=== PATIENT | female | born 1985 | race Caucasian/White ===

== ENCOUNTER 2024-12-15 16:13 | Emergency (ER) | payer BC ==
[~2024-12-15] VITALS: Ht 157.5 cm; Wt 86.4 kg
[2024-12-15 16:37] VITALS: TEMP 98.3
[2024-12-15 17:08] LABS: MEAN PLATELET VOLUME 7.5 FL (7.4-10.4); RED CELL DISTRIBUTION WIDTH 16.0 % (11.5-14.5)
[2024-12-15 17:19] LABS: LEUKOCYTE ESTERASE ,URINE NEGATIVE (Neg); NITRITES, URINE NEGATIVE (Neg); OCCULT BLOOD,URINE NEGATIVE (Neg)
[2024-12-15 17:20] LABS: URINE HCG NEGATIVE (NEG)
[2024-12-15 17:26] LABS: CREATININE 0.86 MG/DL (0.40-0.90); TOTAL CARBON DIOXIDE 28.8 MMOL/L (24-32); eCRCL 69 ML/MIN; eGFR 73 ML/MIN
[2024-12-15 17:32] LABS: UA COLLECTION TYPE CLN CATCH MIDSTREAM
[2024-12-15] MEDS ORDERED: HYDR-3965 PO (20:22)
[2024-12-15] MEDS ORDERED: CYCL-1 PO (20:22)
--- NOTE | 2024-12-15 20:23 | Physician Documentation ---
History of Present Illness ~ Chief Complaint: Flank Pain Stated Complaint: UTI Time Seen by MD: 20:12 HPI Patient presents to the emergency room for evaluation of back pain onset three days ago. No falls or injuries reported. She did call telemedicine who prescribed her some Macrobid. No fevers. She denies any dysuria. She is concerned that it may be her kidneys. Taking a leave and Tylenol with limited benefit. Review of Systems ROS All review of systems negative except as per HPI Physical Exam Physical Exam Vital Signs: Temperature: 98.3, Source: Oral, Heart Rate: 123, Respiratory Rate: 16, BP: 180/71, Pulse Oximetry: 97, Weight: 86.360 Oxygen Flow Rate: 0 Physical Exam General: Patient is awake, alert, oriented x4 in no acute distress and well appearing.~ Head: Normocephalic and atraumatic. Eyes: Conjunctival normal. EOMI. PERRL. ENT: Mucous membranes moist. Neck: Supple, trachea is midline. Chest: Clear to auscultation bilaterally without rales, rhonchi, or wheezes. There is no accessory muscle use or retractions. Cardiac: RRR without murmurs, gallops, or rubs. Abd: Soft, nondistended, nontender, with normoactive bowel sounds. No guarding, rebound, or rigidity. Back: Tenderness to palpation to midline and upper lumbar area Progress Results/Orders Results/Orders Vital Signs 12/15/24 12/15/24 16:37 19:42 Temp 98.3 Pulse 123 Resp 16 B/P (MAP) 180/71 Pulse Ox 97 O2 Flow Rate 0 Laboratory Tests Test 12/15/24 16:41 12/15/24 16:55 Urine Specimen Description Cln catch midstream Urine Color Yellow Urine Clarity Clear Urine pH 7.5 Urine Specific [place] 1.010 Urine Protein Negative Urine Glucose (UA) Negative Urine Ketones Negative Urine Occult Blood Negative Urine Nitrite Negative Urine Bilirubin Negative Urine Urobilinogen 0.2 Urine Leukocyte Esterase Negative Urine Culture Indicated Not ind Volume Urine Centrifuged 10 ml Urine HCG, Qualitative Negative Urine Comment White Blood Count 9.2 Red Blood Count 5.06 Hemoglobin 12.9 Hematocrit 39.0 Mean Corpuscular Volume 77.1 L Mean Corpuscular Hemoglobin 25.4 L Mean Corpuscular Hemoglobin Concent 33.0 Red Cell Distribution Width 16.0 H Platelet Count 370 Mean Platelet Volume 7.5 Neutrophils (%) (Auto) 73.3 Lymphocytes (%) (Auto) 17.6 L Monocytes (%) (Auto) 7.7 Eosinophils (%) (Auto) 0.8 Basophils (%) (Auto) 0.6 Neutrophils # (Auto) 6.7 Lymphocytes # (Auto) 1.6 Monocytes # (Auto) 0.7 Eosinophils # (Auto) 0.1 Basophils # (Auto) 0.1 CBC Comment Sodium Level 137 Potassium Level 3.7 Chloride Level 100 Carbon Dioxide Level 28.8 Anion Gap 8 Blood Urea Nitrogen 7 Creatinine 0.86 Estimated GFR/1.73 m2 73 BUN/Creatinine Ratio 8.1 L Glucose Level 105 H Calcium Level 9.1 Total Bilirubin 0.2 Aspartate Amino Transf (AST/SGOT) 36 Alanine Aminotransferase (ALT/SGPT) 57 Alkaline Phosphatase 80 Total Protein 7.6 Albumin 3.7 Globulin 3.9 Albumin/Globulin Ratio 0.9 L Chemistry Comments Medical Decision Making Findings Patient presents to the emergency room with back pain as per HPI. Differentials include but are not limited to pyelonephritis kidney stone aortic pathology musculoskeletal pain therefore emergent labs ordered which were reassuring for no elevation of white blood cell count and urinalysis is clear of blood and infection. As I am able to elicit tenderness to palpation I do believe this is musculoskeletal in nature. No CVA tenderness and no blood and he had not feel patient requires investigation into kidney stone. At this juncture with reassuring findings I do not feel that she requires emergent CT scan as I believe the risk of radiation exposure outweighs any benefit. Departure Disposition: HOME / SELF CARE / HOMELESS Impression: Primary Impression: Low back pain Condition: Stable Discharge Instructions: Acute Back Pain, Adult Referrals: NO PRIMARY CARE PROVIDER (PCP) Prescriptions Hydrocodone Bit/Acetaminophen 5/325 MG ([place] 5/325 MG) 5 Mg/325 Mg Tablet 1 TAB PO Q4-6 hours PRN for pain, #7 TAB Prov: RICKY WILSON MD 12/15/24 Cyclobenzaprine* (Cyclobenzaprine*) 10 Mg Tablet 1 TAB PO Q8H for muscle spasms for 10 Days, #30 TAB 0 Refills Prov: RICKY WILSON MD 12/15/24 Education Educated: Patient Educated regarding: diagnosis, treatment, need for follow up Signature Scribe Signature: No scribe Attestation: The note accurately reflects work and decisions made by me.Ricky Wilson MD 12/15/24 20:23 RICKY WILSON MD Dec 15, 2024 20:23
[2024-12-15 20:37] VITALS: BP 158/113; PULSE 93; RESP 16; O2SAT 96
== END 2024-12-15 20:39 | disposition home or self-care (01) ==
LOC: ER 16:14
DX: M54.50 Low back pain, unspecified (principal)
CPT/HCPCS: 36415; 80053; 81003; 81025; 85025; 99283